=== PATIENT | female | born 1980 | race Caucasian/White ===

== ENCOUNTER 2016-12-18 09:16 | Day surgery (SDC) | payer BC ==
[~2016-12-18 09:16] MED LIST: ceFAZolin 2 GM in NACL 0.9% 100 ML IV ONE
[2016-12-18] MEDS ORDERED: MARCAINE-EPI 0.5%-1:200,000 INFILTRATI ONE ×2 (09:20→11:23)
[2016-12-18] MEDS ORDERED: ZEMURON IV ONE ×2 (09:23→20:51)
[2016-12-18] MEDS ORDERED: DIPRIVAN 10 MG/ML IV ONE (09:23)
[2016-12-18] MEDS ORDERED: XYLOCAINE MPF 2% ONE (09:23)
[2016-12-18] MEDS ORDERED: DILAUDID ONE (09:24)
[2016-12-18] MEDS ORDERED: NACL 0.9% 1000 ML 1,000 ML ONE ×2 (09:49→11:55)
[2016-12-18] MEDS ORDERED: ANCEF/STERILE WATER 2 GM/20 ML 2 GM/20 ML SYRINGE IV SCH (10:00)
[2016-12-18] MEDS ORDERED: VERSED IV NR (10:00)
[2016-12-18] MEDS ORDERED: PEPCID IV NR (10:00)
[2016-12-18] MEDS ORDERED: NACL 0.9% 1000 ML 1,000 ML IV SCH (10:00)
--- NOTE | 2016-12-18 10:04 | Anesthesia Day of Surgery ---
Anesthesia Day of Surgery - Day of Surgery Patient Examined: Yes Patient H&P Reviewed: Yes Patient is NPO: Yes
--- NOTE | 2016-12-18 10:04 | Anesthesia Consultation ---
Anesthesia Consult and Med Hx - Airway Anesthetic Teeth Evaluation: Good ROM Head & Neck: Adequate Mental/Hyoid Distance: Adequate Mallampati Class: Class II Intubation Access Assessment: Good - Pulmonary Exam CTA: Yes - Pre-Operative Health Status ASA Pre-Surgery Classification: ASA2 Proposed Anesthetic Plan: General (no previous problems) - Pulmonary Hx Smoking: Yes (occasional) - Endocrine Hx Non-Insulin Dependent Diabetes: Yes
[2016-12-18] MEDS: DILAUDID IV PRN ×2 (10:09→12:30)
[2016-12-18 10:11] LABS: Basophils % (Auto) 0.6 % (0.0-1.8); Eosinophils % (Auto) 3.2 % (0.0-4.3); Hematocrit 39.3 % (30.3-42.9); Hemoglobin 12.9 gm/dl (10.1-14.3); Mean Corpuscular HGB Conc 33 % (30-34); Mean Corpuscular Hemoglobin 30 pg (28-32); Mean Corpuscular Volume 92 fl (79-97); Platelet Count 200 K/mm3 (140-440); Red Blood Count 4.29 M/mm3 (3.65-5.03); Red Cell Distribution Width 13.3 % (13.2-15.2); White Blood Count 6.4 K/mm3 (4.5-11.0)
[2016-12-18 10:37] LABS: Alanine Aminotransferase 11 units/L (7-56); Albumin 3.6 g/dL (3.9-5); Albumin/Globulin Ratio 1.3 %; Alkaline Phosphatase 59 units/L (35-129); Amylase 61 units/L (27-131); Anion Gap 17 mmol/L; Bilirubin,Total 0.5 mg/dL (0.1-1.2); Blood Urea Nitrogen 13 mg/dL (7-17); Calcium 8.6 mg/dL (8.4-10.2); Carbon Dioxide 21 mmol/L (22-30); Chloride 105.2 mmol/L (98-107); Glucose 180 mg/dL (65-100); Potassium 4.4 mmol/L (3.6-5.0); Sodium 139 mmol/L (137-145); Total Protein 6.4 g/dL (6.3-8.2)
[2016-12-18] MEDS ORDERED: ROBINUL ONE ×2 (10:51→12:04)
[2016-12-18] MEDS ORDERED: NACL 0.9% IR ONE (11:23)
[2016-12-18] MEDS ORDERED: ZOFRAN ONE (11:27)
--- NOTE | 2016-12-18 11:58 | Discharge Summary ---
Short Stay Discharge Plan Activity: other (observe x 4 hrs then january d/c if stable. ice chips today, cl liq in am, low fat solid diet in 48hrs. keep dressings dry x 5 days. aleve 1 po q6-8hrs prn for breakthrough pain. no lifting over 5 lbs x 2 wks) Weight Bearing Status: Partial Weight Bearing Diet: other Wound: keep clean and dry Follow up with: REFUGIO BEY MD [Staff Physician] - 7 Days
[2016-12-18] MEDS ORDERED: NEOSTIGMINE ONE (12:04)
[2016-12-18] MEDS ORDERED: TORADOL ONE (12:08)
--- NOTE | 2016-12-18 12:22 | Operative Report ---
PREOPERATIVE DIAGNOSIS: Gallbladder disease. POSTOPERATIVE DIAGNOSIS: Gallbladder disease. PROCEDURE: Laparoscopic cholecystectomy. SURGEON: Gulshan Miranda MD C[facility] ARTIST: Dr. Mays ANESTHESIA: General. ESTIMATED BLOOD LOSS: Minimal. DRAINS: None. COMPLICATIONS: None. DESCRIPTION OF PROCEDURE: The patient was taken to the operating room, prepped and draped in usual sterile fashion. Veress needle was inserted and CO2 insufflation begun. A 5 mm trocar was then inserted and camera inserted. All other trocars were inserted under direct visualization. Gallbladder was then grasped at the fundus and infundibulum and retracted towards the right subphrenic space. Dissection was then carried out along the Calot's triangle. The cystic duct and artery were delineated in their entire course. Both were then doubly clipped and transected. Hook electrocautery was used to dissect the gallbladder from the overlying liver bed. Prior to complete removal, the liver bed was inspected for bleeding and noted to be dry. Cystic duct and artery stumps were once again visualized. The clips were noted to be securely in place with no evidence of bleeding or bile leak. Gallbladder was then completely freed and brought out through the subxiphoid port. This area was inspected for bleeding and noted to be dry. Subxiphoid trocar was then gently reinserted. The right upper quadrant of the abdomen was copiously irrigated and suctioned dry. All 5 mm ports were removed under direct visualization. No bleeding or oozing noted. The subxiphoid port was then used to expel the CO2 and the trocar removed. The fascia at this site was closed with a [id number] 0 Vicryl suture. The skin in all port sites was closed with subcuticular 4-0 Vicryl. A 0.5% Marcaine was infiltrated over the area for postoperative pain relief. The patient tolerated the procedure well and left the OR in stable condition. JOB# [id number] HELEN/NIHARIKA
[2016-12-18] MEDS ORDERED: NORCO 5/325 PO PRN (14:48)
[2016-12-18] MEDS ORDERED: ZOFRAN IV NR (14:49)
[2016-12-18 16:05] VITALS: BP 106/64
--- NOTE | 2016-12-18 16:36 | Post Anesthesia Evaluation ---
- Post Anesthesia Evaluation Patient Participated: Yes Airway Patent: Yes Stable Respiratory Function: Yes Temp > 96.8F: Yes Pain Manageable: Yes Adequeate Hydration: Yes Anesthesia Complications: No Block Receding Appropriately: Not Applicable
== END 2016-12-18 16:00 | disposition home or self-care (01) ==
LOC: OR 09:16
PROVIDERS: ATTEND Surgery
DX: K80.10 Calculus of gallbladder with chronic cholecystitis without obstruction (principal); F17.210 Nicotine dependence, cigarettes, uncomplicated; E11.9 Type 2 diabetes mellitus without complications
CPT/HCPCS: 36415; 47562; 80053; 81025; 82150; 82962; 85025; 88304; J0690; J1170; J1885; J2250; J2405; J2704; J2710; J7030

== ENCOUNTER 2018-10-12 10:44 | Outpatient (CLI) | payer BC ==
--- NOTE | 2018-10-12 13:34 | Magnetic Resonance Report ---
MRI LUMBAR SPINE WITHOUT CONTRAST HISTORY: Low back pain. TECHNIQUE: axial T1, T2. sagittal T1,T2, STIR. COMPARISON: none. FINDINGS: The conus terminates at L1-2. No signal abnormality or mass. The cauda equina is within normal limits. No central canal stenosis. Normal height and alignment of the lumbar vertebra. Normal bone marrow signal. No evidence for fracture, subluxation or bone lesion. The lumbar discs are within normal limits. The posterior elements and facet joints are in appropriate relationship. Minimal facet arthropathy is identified at all levels. No hypertrophic changes. The ligamentum flavum is within normal limits. L1-2: No significant abnormality. L2-3: No significant abnormality. L3-4: No significant abnormality. L4-5: No significant abnormality. L5-S1: No significant abnormality. IMPRESSION: Minimal early facet arthropathy is identified at all levels of the lumbar spine. The disc spaces are within normal limits. No evidence for annular tear, herniation or nerve impingement. Normal bony structures.
== END 2018-10-12 10:45 | disposition home or self-care (01) ==
LOC: MRI 10:44
PROVIDERS: ATTEND Internal Medicine
DX: M46.86 Other specified inflammatory spondylopathies, lumbar region (principal); E11.9 Type 2 diabetes mellitus without complications; Z87.891 Personal history of nicotine dependence
CPT/HCPCS: 72148

== ENCOUNTER 2021-01-14 16:01 | Outpatient (CLI) | payer BC | END 2021-01-14 16:02 | disposition home or self-care (01) | LOC: LAB 16:01 | PROVIDERS: ATTEND Internal Medicine | DX: N39.0 Urinary tract infection, site not specified (principal) | CPT/HCPCS: 87086 ==

== ENCOUNTER 2021-05-16 06:31 | Outpatient (CLI) | payer BC ==
[2021-05-16 07:21] LABS: Basophils % (Auto) 0.5 % (0.0-1.8); Eosinophils # (Auto) 0.2 K/mm3 (0.0-0.4); Eosinophils % (Auto) 2.8 % (0.0-4.3); Hematocrit 36.8 % (30.3-42.9); Hemoglobin 12.5 gm/dl (10.1-14.3); Lymphocytes # (Auto) 1.9 K/mm3 (1.2-5.4); Lymphocytes % (Auto) 24.4 % (13.4-35.0); Mean Corpuscular HGB Conc 34 % (30-34); Mean Corpuscular Volume 94 fl (79-97); Monocytes # (Auto) 0.5 K/mm3 (0.0-0.8); Monocytes % (Auto) 6.4 % (0.0-7.3); Platelet Count 205 K/mm3 (140-440); Red Blood Count 3.94 M/mm3 (3.65-5.03); Red Cell Distribution Width 13.7 % (13.2-15.2)
[2021-05-16 07:39] LABS: Alanine Aminotransferase 11 units/L (7-56); Blood Urea Nitrogen 22 mg/dL (7-17); Calcium 9.3 mg/dL (8.4-10.2); Hemolysis Index 14
[2021-05-16 07:43] LABS: BUN/Creatinine Ratio 44
[2021-05-16 07:44] LABS: Bacteria,Urine 1+ /HPF (Negative); Bilirubin,Urine NEG (Negative); Blood,Urine NEG (Negative); Color,Urine Straw (Yellow); Mucus,Urine FEW /HPF; Protein,Urine <15 mg/dL mg/dL (Negative); Urobilinogen,Urine < 2.0 mg/dL (<2.0)
== END 2021-05-16 06:32 | disposition home or self-care (01) ==
LOC: LAB 06:31
PROVIDERS: ATTEND Internal Medicine
DX: E11.65 Type 2 diabetes mellitus with hyperglycemia (principal); E78.5 Hyperlipidemia, unspecified; R10.2 Pelvic and perineal pain; N39.0 Urinary tract infection, site not specified
CPT/HCPCS: 36415; 80053; 81001; 83036; 85025; 87338